=== PATIENT | female | born 2000 | race Caucasian/White ===

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

== ENCOUNTER 2022-01-12 22:19 | Emergency (ER) | payer BC, OTHER | END 2022-01-12 22:39 | disposition home or self-care (01) | LOC: BURERS 22:19 | DX: L03.032 Cellulitis of left toe (principal); T23.001D Burn of unspecified degree of right hand, unspecified site, subsequent encounter | CPT/HCPCS: 99283 ==